=== PATIENT | female | born 1995 | race Caucasian/White ===

== ENCOUNTER 2024-07-28 10:35 | Outpatient (CLI) | payer BC, SELFPAY ==
[2024-07-28 23:44] LABS: Chlamydia DNA Amplified* NOT DETECTED (No Detected); GC DNA Amplified* NOT DETECTED (No Detected)
[2024-08-01 20:17] LABS: HPV Source Cervix; HPV, High Risk by TMA Not Detected
== END 2024-07-28 10:36 | disposition home or self-care (01) ==
PROVIDERS: PCP Physician Assistant Medical; Visit Provider Physician Assistant Medical
DX: Z13.220 Encounter for screening for lipoid disorders (principal); Z13.21 Encounter for screening for nutritional disorder; Z13.29 Encounter for screening for other suspected endocrine disorder; Z11.3 Encounter for screening for infections with a predominantly sexual mode of transmission; Z11.59 Encounter for screening for other viral diseases; Z11.51 Encounter for screening for human papillomavirus (HPV); Z12.4 Encounter for screening for malignant neoplasm of cervix; Z11.4 Encounter for screening for human immunodeficiency virus [HIV]
CPT/HCPCS: 80061; 82306; 84443; 86592; 86703; 86803; 87491; 87591; 87624; 87625; 88141; 88142

== ENCOUNTER 2024-09-30 19:09 | Emergency (ER) | payer BC, SELFPAY ==
[2024-09-30 19:16] VITALS: BP 112/73; PULSE 133; RESP 16; TEMP 38.3; O2SAT 98; BMI 25.4
[2024-09-30 20:18] LABS: PCR FLU A Negative PCR FLU A (Negative); PCR FLU B Negative PCR FLU B (Negative); PCR RSV Negative PCR RSV (Negative); SARS PCR* Negative SARS-CoV-2 (Negative)
[2024-09-30 20:42] VITALS: TEMP 38.1
--- NOTE | 2024-09-30 20:43 | ED_ITS ---
HPI - Fever General Time Seen by Provider: 20:43 Date Seen: 09/30/24 Chief Complaint: Fever Stated Complaint: Fever, joint pain Time Seen by Provider: 09/30/24 20:42 Source: patient and RN notes reviewed Mode of arrival: ambulatory Limitations: no limitations History of Present Illness HPI Narrative: This 29-year-old female is coming in with onset sore throat, fevers up to 101 starting yesterday. She had some dry coughing overnight but really has not cough today. Her joints feel achy, she feels aching her hips. She has had no urinary changes, no abdominal pain, no nausea vomiting diarrhea or constipation. She took DayQuil at 5:00 p.m., 400 mg of ibuprofen are around 6:00 p.m.. She is scheduled to leave for [place] on Thursday. She does work in a [employer], there have been kids out ill but she is not aware of any particular exposure. She has had no recent travel. She has no history of asthma. Patient had mono in [address]. Related Data Previous Rx's ?Medication ?Instructions ?Recorded hydroxyzine HCl 25 mg tablet 25 - 50 mg (1 - 2 x 25 mg) PO BID 05/26/24 PRN anxiety #30 tabs sumatriptan succinate 50 mg tablet See Rx Instructions PO .COMPLEX 05/26/24 #10 tabs escitalopram oxalate 10 mg tablet 10 mg PO QDAY #90 tabs 07/28/24 amoxicillin 875 mg-potassium 1 tab PO BID #19 tabs 09/30/24 clavulanate 125 mg tablet Allergies Allergy/AdvReac Type Severity Reaction Status Date / Time No Known Drug Allergies Allergy Verified 09/30/24 19:20 Review of Systems Narrative As per HPI. PFSH PFS Social History Smoking Status: Never smoker Non-prescribed substance use: denies use Exam Const Vital Signs, click to edit/add: Vital Signs - 24 hr 09/30/24 19:16 09/30/24 20:42 09/30/24 20:54 Temperature 101.0 F H 100.5 F H 100.5 F H Pulse Rate [Pulse Oximeter] 133 H Respiratory Rate 16 Blood Pressure [Right Upper Arm] 112/73 Pulse Oximetry 98 Oxygen Delivery Method Room Air This 29-year-old female is alert, interactive, no apparent distress. 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 Pupils equal round reactive, sclera clear. TMs are normal, normal translucency light reflects, no evidence of infection. Dentition, oral mucosa and tongue normal tonsils are about 1+, mildly erythematous, some anterior tonsillar pillar erythema, uvula normal. Neck with some cervical adenopathy that is not fixed her matted, neck is supple. Lungs are clear come good air entry, no wheezing crackles, no tachypnea. CV fast regular, no murmur. Cheeks are flushed but no rash. Documenting provider has reviewed patient's vital signs: yes Course Course ED Course: Did review with her that her viral triple swab is negative. I do think we should do strep DNA testing, look at a CBC. Would consider treating for pharyngitis/early tonsillitis if white blood count is elevated. Will also give her a dose of 650 mg oral Tylenol. This still could be viral upper respiratory illness, strep pharyngitis, bacterial tonsillitis that is non streptococcal. Reevaluation(s) Time of Reevaluation #1: 21:38 Reevaluation #1: Have reviewed negative [place] [id number] with predominance of neutrophils. Reviewed with her that would consider her to have early bacterial pharyngitis/tonsillitis. She has taken Augmentin before. Did discuss initial dose of IV antibiotics, she really is not inclined to wait to have that done. Will give her an oral dose of Augmentin here, she thinks she will be able to easily swallow that. Reviewed signs and symptoms for return. Continue with [id number] medicines as needed for symptom control. Vital Signs Vital signs: Initial Vital Signs Temperature 101.0 F H 09/30/24 19:16 Temperature Source Temporal Artery Scan 09/30/24 19:16 Pulse Rate 133 H 09/30/24 19:16 Respiratory Rate 16 09/30/24 19:16 Blood Pressure 112/73 09/30/24 19:16 Blood Pressure Mean 86 09/30/24 19:16 Blood Pressure Position Sitting 09/30/24 19:16 Pulse Oximetry 98 09/30/24 19:16 Oxygen Delivery Method Room Air 09/30/24 19:16 Vital Signs Temperature 101.0 F H 09/30/24 19:16 Pulse Rate 133 H 09/30/24 19:16 Respiratory Rate 16 09/30/24 19:16 Blood Pressure 112/73 09/30/24 19:16 Pulse Oximetry 98 09/30/24 19:16 Oxygen Delivery Method Room Air 09/30/24 19:16 Temperature 100.5 F H 09/30/24 20:54 Pulse Rate 133 H 09/30/24 19:16 Respiratory Rate 16 09/30/24 19:16 Blood Pressure 112/73 09/30/24 19:16 Pulse Oximetry 98 09/30/24 19:16 Oxygen Delivery Method Room Air 09/30/24 19:16 Medications Administered Medications: Discontinued Medications Generic Name Dose Route Start Last Admin Trade Name Freq PRN Reason Stop Dose Admin Acetaminophen 650 mg 09/30/24 20:49 09/30/24 20:54 Acetaminophen 325 Mg Tablet PO 09/30/24 20:50 650 mg ONCE ONE Administration MDM - Fever Lab Data Attestation: I reviewed the patient's lab results. Labs: Lab Results 09/30/24 09/30/24 Range/Units 19:16 20:55 WBC 20.23 H (4.50-11.00) K/uL RBC 4.10 (4.00-5.20) m/uL Hgb 12.1 (12.0-16.0) gm/dL Hct 37.2 (33.0-51.0) % MCV 91 (80-100) fL MCH 30 (26-34) pg MCHC 33 (32-36) gm/dL RDW Coeff of Gini 12.7 (11.5-15.5) % Plt Count 260 (140-440) K/uL Neut % (Auto) 89.3 H (42.0-72.0) % Lymph % (Auto) 4.0 L (20-44) % [place] % (Auto) 6.2 (0.0-11.0) % Eos % (Auto) 0.2 (0.0-7.0) % Baso % (Auto) 0.1 (0.0-3.0) % Neut # (Auto) 18.10 H (1.7-7.0) K/uL Lymph # (Auto) 0.80 L (0.90-2.90) K/uL [place] # (Auto) 1.30 H (0.00-0.90) K/UL Eos # (Auto) 0.00 (0.00-0.50) K/uL Baso # (Auto) 0.00 (0.00-0.30) K/uL Abs Immat Gran (auto) 0.00 (0.00-0.30) K/uL Imm/Tot Granulo (auto) 0.2 % SARS-CoV-2 (PCR) Negative SARS-CoV-2 (Negative) Influenza Type A (PCR) Negative PCR FLU A (Negative) Influenza Type B (PCR) Negative PCR FLU B (Negative) RSV (PCR) Negative PCR RSV (Negative) Group A Strep DNA NOT DETECTED (Not Detectd) Discharge Plan Discharge Clinical Impression: Acute tonsillitis Qualifiers: Pharyngitis/tonsillitis etiology: unspecified etiology Qualified Code(s): J03.90 - Acute tonsillitis, unspecified Patient Disposition: Home, Self-Care Condition: Stable Instructions: Tonsillitis (ED) Additional Instructions: Continue with antibiotic, next dose due tomorrow morning. Push fluids, hopefully you should start improving in the next couple days. If your worsening at any point, have further concerns, please seek re-evaluation. May need to continue with [id number] medicines such as Tylenol and ibuprofen per bottle directions for fever and symptom control. Activity Level: Activity as Tolerated Prescriptions: New amoxicillin-pot clavulanate 875-125 mg tablet 1 tab PO BID Qty: 19 0RF No Action escitalopram oxalate 10 mg tablet 10 mg PO QDAY Qty: 90 0RF hydroxyzine HCl 25 mg tablet 25 - 50 mg PO BID PRN (Reason: anxiety ) Qty: 30 0RF Rx Instructions: 1-2 tablets as needed for panic sumatriptan succinate 50 mg tablet See Rx Instructions PO .COMPLEX Qty: 10 0RF Rx Instructions: take 1 tab at onset of headache; if no relief may repeat 1 tab after at least 2 hrs; max = 4 tabs/24 hr PO Follow Up/Referrals: Raya Redman PA-C [Primary Care Provider] - Stand Alone [facility] Inst[facility]
[2024-09-30 20:54] VITALS: TEMP 38.1
[2024-09-30] MEDS: ACETAMINOPHEN 325 MG TABLET 650 MG PO (20:54)
[2024-09-30 21:05] LABS: Basophils Percent Auto 0.1 % (0.0-3.0); Eosinophils Percent Auto 0.2 % (0.0-7.0); Hematocrit 37.2 % (33.0-51.0); Hemoglobin* 12.1 gm/dL (12.0-16.0); Immature Granulocytes Pct Auto 0.2 %; Mean Corpuscular HGB Conc 33 gm/dL (32-36); Mean Corpuscular Hemoglobin 30 pg (26-34); Mean Corpuscular Volume 91 fL (80-100); Monocytes Percent Auto 6.2 % (0.0-11.0); Neutrophils Percent Auto 89.3 % (42.0-72.0); Platelet Count* 260 K/uL (140-440); RDW Coefficient of Variation % 12.7 % (11.5-15.5); White Blood Count* 20.23 K/uL (4.50-11.00)
[2024-09-30 21:06] LABS: Slide Review Reflex No
[2024-09-30 21:24] LABS: Strep A DNA Probe* NOT DETECTED (Not Detectd)
[2024-09-30] MEDS: AMOXICILLIN/CLAVULANATE 875 mg/125 mg TABLET PO (21:47)
== END 2024-09-30 21:57 | disposition home or self-care (01) ==
PROVIDERS: Emergency Provider Family Medicine; PCP Physician Assistant Medical
DX: J03.90 Acute tonsillitis, unspecified (principal)
CPT/HCPCS: 36415; 85025; 87631; 87651; 99283; A9270

== ENCOUNTER 2025-04-07 12:16 | Outpatient (CLI) | payer BC, SELFPAY ==
[2025-04-07 15:50] LABS: Chlamydia DNA Amplified* NOT DETECTED (No Detected); GC DNA Amplified* NOT DETECTED (No Detected)
[2025-04-08 22:55] LABS: HPV Source Cervix
[2025-04-11 12:48] LABS: Pap Test Digital Imaging Done
== END 2025-04-07 12:17 | disposition home or self-care (01) ==
PROVIDERS: PCP Physician Assistant Medical; Visit Provider Physician Assistant Medical
DX: Z00.00 Encounter for general adult medical examination without abnormal findings (principal)
CPT/HCPCS: 80053; 80061; 82306; 82607; 84443; 87491; 87591; 87624; 87625; 88141; 88142; 88175